=== PATIENT | male | born 1960 | race Caucasian/White ===

== ENCOUNTER 2020-02-13 14:44 | Emergency (ER) | payer BC ==
[~2020-02-13] VITALS: Ht 182.9 cm; Wt 97.5 kg
[2020-02-13 14:45] VITALS: BP_SYST 153
--- NOTE | 2020-02-13 14:45 | NUR ---
PLACED IN FAST TRACK 2
--- NOTE | 2020-02-13 15:05 | NUR ---
DR. ALICEA AT BEDSIDE
[2020-02-13] MEDS ORDERED: PRED10TA PO (15:18)
[2020-02-13 15:30] VITALS: BP_SYST 143
--- NOTE | 2020-02-13 15:30 | NUR ---
Patient given written and verbal discharge instructions and verbalizes understanding. ER MD discussed with patient the results and treatment provided. Patient in stable condition. ID arm band removed. Patient educated on pain management and to follow up with PMD. Pain Scale 0/10 Opportunity for questions provided and answered.
--- NOTE | 2020-02-13 15:30 | NUR ---
Pt BIB family to ED seeking evaluation status post suspected allergic reaction. Patient reports his tongue began sweeling after his dose of Lisinopril, which he has been prescribed and compliant with for many years. He reports visiting Urgent Care where he was treated with Decadron, Epinephrine, and Benadryl and discharged with improvement. No exacerbating factors. He denies any shortness of breath, nausea, fever, chills, or rash.
== END 2020-02-13 15:30 | disposition home or self-care (01) ==
LOC: SED 14:44
DX: T78.3XXA Angioneurotic edema, initial encounter (principal); I10 Essential (primary) hypertension; Z79.899 Other long term (current) drug therapy
CPT/HCPCS: 99291